=== PATIENT | male | born 1995 | race Caucasian/White ===

== ENCOUNTER 2021-11-04 21:41 | Emergency (ER) | payer SELFPAY ==
--- NOTE | 2021-11-04 21:49 | ED.WEAKNESS ---
HPI - Weakness General Chief complaint: Nausea/Vomiting/Diarrhea Stated complaint: throwing up, weak, tired Time Seen by Provider: 11/04/21 21:50 Source: patient History of Present Illness HPI Narrative: 26 year male no significant past medical history presents to the ER with a 1 day history of -- multiple episodes of vomiting -- loose stools -- abdominal pain -- generalized weakness no fever. No chills. No chest pain or shortness of breath. MD Complaint: generalized weakness Onset (ago): day(s) ( For the past 24 hours) Duration: constant Location: generalized Migration: none Severity: moderate Relieving factors: none Exacerbating factors: none Associated symptoms: denies other symptoms and nausea/vomiting Related Data Home Medications Medication Instructions Recorded Confirmed aripiprazole 5 mg tablet 5 tablet PO DAILY 11/04/21 11/04/21 buspirone 10 mg tablet 10 tablet PO DAILY 11/04/21 11/04/21 Allergies Allergy/AdvReac Type Severity Reaction Status Date / Time Sulfa (Sulfonamide Allergy Unknown Verified 11/04/21 21:57 Antibiotics) Review of Systems Review of Systems: All systems reviewed & are unremarkable except as noted in HPI and below Constitutional: Constitutional: Reports as per HPI and Reports no additional constitutional complaints Eyes: Eyes: Reports as per HPI and Reports no additional eye complaints ENT: Reports system reviewed and no additional complaints, except as documented and Reports as per HPI Cardiovascular: Cardiovascular: Reports as per HPI and Reports no additional cardiovascular complaints Respiratory: Respiratory: Reports as per HPI and Reports no additional respiratory complaints Gastrointestinal: Gastrointestinal: Reports as per HPI, Reports no additional gastrointestinal complaints, Reports abdominal pain, Reports diarrhea, Reports nausea and Reports vomiting Genitourinary: Genitourinary: Reports no additional male genitourinary complaints and Reports as per HPI Musculoskeletal: Musculoskeletal: Reports no additional musculoskeletal complaints and Reports as per HPI Integumentary/Breasts: Skin/Breast: Reports system reviewed and no additional complaints, except as docu and Reports as per HPI Neurologic: Reports system reviewed and no additional complaints, except as documented and Reports as per HPI Psychiatric: Psychiatric: Reports no additional psychiatric complaints and Reports as per HPI Endocrine: Endocrine: Reports no additional endocrine complaints and Reports as per HPI Hematologic/Lymphatic: Hematologic/Lymphatic: Reports no additional hematologic/lymphatic complaints and Reports as per HPI Allergic/Immunologic: Allergic/Immunologic: Reports no additional allergic/immunologic complaints and Reports as per HPI Exam Const: General: healthy appearing and no acute distress Nutritional Appearance: well nourished Orientation/consciousness: patient oriented x3 Limitations: no limitations HENMT: Head: normal to inspection Ears: external ears normal General nose exam: Normal external nose present Face and sinus: normal facial exam Mouth: Yes Normal oral and palatal mucosa present Throat: posterior oropharynx normal Eyes: Conjunctivae: conjunctivae normal Pupils: Equal, round and reactive pupils present EOM: EOMs intact bilaterally Direct Ophthalmoscopy: no photophobia Neck: Neck: normal visual inspection, no lymphadenopathy and no meningeal signs Chest: Chest palpation & inspection: normal inspection of the chest Resp: Effort & Inspection: normal respiratory effort Auscultation: clear to auscultation bilaterally Cardio: Rate: regular rate Rhythm: regular rhythm GI: GI Palp: Yes Soft to palpation Other: no tenderness/ rigidity /rebound : General: Yes bladder normal to palpation Back/Spine/Pelvis: Back: no CVA tenderness Skin: General skin exam: normal color Rashes: no rashes Wounds: no wounds Neuro: General: patient oriented x3, mo
[2021-11-04 21:53] VITALS: BP 171/103; PULSE 99; RESP 20; TEMP 36.4; O2SAT 99
[2021-11-04] MEDS: ONDANSETRON HCL ODT 4 MG TABLET PO (22:12)
[2021-11-04 22:14] LABS: Basophils Absolute Auto 0.05 K/mm3 (0.00-0.10); Basophils Percent Auto 0.4 % (0.0-1.0); Eosinophils Percent Auto 1.6 % (1.0-6.0); Hematocrit 45.1 % (40.0-54.0); Hemoglobin 15.4 g/dL (14.0-18.0); Immature Granulocyte Absolute 0.08 K/mm3 (0.00-0.00); Immature Granulocyte Percent A 0.6 % (0.0-0.0); Lymphocytes Absolute Auto 2.71 K/mm3 (1.10-4.50); Lymphocytes Percent Auto 21.7 % (18.0-42.0); Mean Corpuscular HGB Conc 34.1 g/dL (32.0-36.0); Mean Corpuscular Hemoglobin 29.9 pg (27.0-31.0); Mean Corpuscular Volume 87.6 fL (78.0-102.0); Mean Platelet Volume 10.5 fl (8.7-11.0); Monocytes Absolute Auto 1.13 K/mm3 (0.10-0.90); Monocytes Percent Auto 9.1 % (2.0-11.0); Neutrophils Absolute Auto 8.3 K/mm3 (1.7-7.2); Neutrophils Percent Auto 66.6 % (50.0-70.0); Platelet Count Result 265 K/mm3 (150-420); Red Blood Count 5.15 M/mm3 (4.70-6.10); Red Cell Distribution Width 12.6 % (11.6-14.4); White Blood Count 12.5 K/mm3 (4.8-10.8)
[2021-11-04 22:29] LABS: INR 0.9; Prothrombin Time 9.8 Seconds (9.50-12.10)
[2021-11-04 22:30] LABS: Alanine Aminotransferase 40 U/L (16-63); Albumin Level 3.6 g/dL (3.4-5.0); Alkaline Phosphatase 155 U/L (46-116); Anion Gap 6 mmol/L (8-16); Aspartate Amino Transferase 22 U/L (15-37); Bilirubin,Total 0.2 mg/dL (0.00-1.00); Blood Urea Nitrogen 15 mg/dL (7-18); Calcium 8.9 mg/dL (8.5-10.1); Carbon Dioxide 28 mmol/L (21-32); Chloride 103 mmol/L (98-108); Estimated Glomerular Filt Rate > 60; Glucose 128 mg/dL (70-99); Lipase 87 U/L (73-393); Osmolality Calculated 286 mOsm/kg (285-295); Potassium 3.7 mmol/L (3.5-5.1); Sodium 137 mmol/L (136-145); Total Protein 7.9 g/dL (6.4-8.2); Troponin I 5.1 ng/L (0.00-60.4)
[2021-11-04 22:33] LABS: Lactic Acid Reflex 1.8 mmol/L (0.4-2.0)
[2021-11-04 22:51] LABS: SARS-CoV-2 RNA PCR Negative (Negative)
[2021-11-04 22:54] LABS: Influenza Control Valid (Valid)
[2021-11-04 23:19] VITALS: BP 148/85; PULSE 95; RESP 18; O2SAT 96
== END 2021-11-04 23:17 | disposition home or self-care (01) ==
PROVIDERS: Emergency Provider Internal Medicine Critical Care Medicine; PCP Family Medicine
DX: K52.9 Noninfective gastroenteritis and colitis, unspecified (principal); R53.1 Weakness; Z20.822 Contact with and (suspected) exposure to COVID-19
CPT/HCPCS: 80053; 83605; 83690; 84484; 85025; 85610; 87804; 99284; A9270; C9803; U0003; U0005

== ENCOUNTER 2023-05-19 09:37 | Emergency (ER) | payer BC, SELFPAY ==
[2023-05-19 09:42] VITALS: BP 142/94; PULSE 75; RESP 18; TEMP 36.1; O2SAT 98
--- NOTE | 2023-05-19 09:44 | ED.GENADULT ---
HPI - General Adult General Chief complaint: Dental/Oral Stated complaint: mouth pain Time Seen by Provider: 05/19/23 09:39 History of Present Illness HPI narrative: Pedro is a 27M with a PMH of poor dentition that presented to the ED with dental pain on the right lower molars. He has had it for a few weeks, but it was much worse over the last few days. It had him in tears this morning. No fevers or dysphagia reported. Pain was not relieved with 800mg of ibuprofen or Tylenol. Related Data Home Medications Medication Instructions Recorded Confirmed aripiprazole 5 mg tablet 5 tablet PO DAILY 11/04/21 05/19/23 buspirone 10 mg tablet 10 tablet PO DAILY 11/04/21 05/19/23 hydroxyzine HCl 50 mg tablet 50 mg PO QID 05/19/23 05/19/23 venlafaxine 75 mg capsule,extended 75 mg PO DAILY 05/19/23 05/19/23 release 24 hr Allergies Allergy/AdvReac Type Severity Reaction Status Date / Time naproxen Allergy Unknown Verified 05/19/23 09:44 Sulfa (Sulfonamide Allergy Unknown Verified 11/04/21 21:57 Antibiotics) Review of Systems Review of Systems: All systems reviewed & are unremarkable except as noted in HPI and below Exam Const: General: cooperative, healthy appearing, comfortable, no acute distress, well developed, alert, awake and Physically active Orientation/consciousness: oriented to person, oriented to place and oriented to time HENMT: Head: normal to inspection, normocephalic and atraumatic Ears: hearing grossly normal bilaterally and external ears normal Face/Nose/Sinus: Normal external nose present Other: Poor dentition with right lower molar cracked with erythema on the right lower periodontal tissue that was very TTP. Eyes: General: appearance normal, both eyes and all related structures Periorbital: periorbital findings normal Sclera: sclerae normal Pupils: Equal, round and reactive pupils present Neck: Neck: normal visual inspection Chest: Chest palpation & inspection: normal inspection of the chest Resp: Effort & Inspection: normal respiratory effort, able to speak in complete sentences and no respiratory distress Cardio: Jugular venous distension: no JVD Skin: General skin exam: normal color and no rashes or lesions noted Neuro: General: oriented to person, oriented to place and oriented to time Cranial nerves: Yes Equal, round and reactive pupils present Extrem: General: normal to inspection Course Vital Signs Vital signs: Vital Signs Temperature 97 F L 05/19/23 09:42 Pulse Rate 75 05/19/23 09:42 Respiratory Rate 18 05/19/23 09:42 Blood Pressure 142/94 H 05/19/23 09:42 Pulse Oximetry 98 05/19/23 09:42 Oxygen Delivery Room Air 05/19/23 09:42 Temperature 97 F L 05/19/23 09:42 Pulse Rate 75 05/19/23 09:42 Respiratory Rate 18 05/19/23 09:42 Blood Pressure 142/94 H 05/19/23 09:42 Pulse Oximetry 98 05/19/23 09:42 Oxygen Delivery Room Air 05/19/23 09:42 Medical Decision Making Vital Signs Vital Signs: Vital Signs Temperature 97 F L 05/19/23 09:42 Pulse Rate 75 05/19/23 09:42 Respiratory Rate 18 05/19/23 09:42 Blood Pressure 142/94 H 05/19/23 09:42 Pulse Oximetry 98 05/19/23 09:42 Oxygen Delivery Room Air 05/19/23 09:42 Temperature 97 F L 05/19/23 09:42 Pulse Rate 75 05/19/23 09:42 Respiratory Rate 18 05/19/23 09:42 Blood Pressure 142/94 H 05/19/23 09:42 Pulse Oximetry 98 05/19/23 09:42 Oxygen Delivery Room Air 05/19/23 09:42 Discharge Plan Discharge Clinical Impression: Dental abscess Patient Disposition: Home, Self-Care Condition: Stable Instructions: Dental Abscess (ED) Prescriptions: New amoxicillin-pot clavulanate 875-125 mg tablet 1 tablet PO Q12H Qty: 10 0RF tramadol 50 mg tablet 50 mg PO Q6H PRN (Reason: pain) Qty: 10 0RF No Action buspirone 10 mg tablet 10 tablet PO DAILY aripiprazole 5 mg tablet 5 tablet PO DAILY ondansetron 4
[2023-05-19] MEDS: HYDROcodone/acetaminophen (*CRX) 5-325 MG TABLET 1 TAB PO (09:52)
[2023-05-19] MEDS: AMOXICILLIN/CLAVULANATE K 875-125 MG TAB 1 TABLET PO (09:52)
[2023-05-19 10:01] VITALS: BP 142/94; PULSE 75; RESP 18; TEMP 36.1; O2SAT 98
== END 2023-05-19 10:01 | disposition home or self-care (01) ==
LOC: CHSED 09:55
PROVIDERS: Emergency Provider Family Medicine; PCP Family Medicine
DX: K04.7 Periapical abscess without sinus (principal); Z79.899 Other long term (current) drug therapy
CPT/HCPCS: 99283; A9270